=== PATIENT | male | born 1985 | race Hispanic/Latino ===

== ENCOUNTER 2024-10-21 12:57 | Emergency (ER) | payer SELFPAY ==
[~2024-10-21] VITALS: Ht 165.1 cm; Wt 81.6 kg
--- NOTE | 2024-10-21 13:55 | ERN ---
General Chief Complaint: Elbow Problem Stated Complaint: NUMBNESS RIGHT FOREARM Time Seen by MD: 13:07 Time Seen by Midlevel: 13:07 Source: patient History of Present Illness Initial Comments Patient is a 39-year-old male presenting to the emergency department with right elbow pain. Patient reports recurrent episodes of right elbow pain in the past however most recently yesterday he developed pain to his elbow after trying to reach for remote on the floor. Denies any direct injury. Denies any heavy lifting. Denies playing any sports. Patient states he was unable to bend his elbow secondary to pain. Denies any other symptoms at this time. Allergies: Coded Allergies: No Known Allergies (Unverified Allergy, Unknown, 10/21/24) Past Medical History Past Medical History: No Pertinent History Past Surgical History: None ROS Dictation CONSTITUTIONAL: Negative except for HPI HEAD/FACE: Negative except for HPI EENT: Negative except for HPI RESPIRATORY: Negative except for HPI GASTROINTESTINAL/ABDOMINAL: Negative except for HPI GENITOURINARY: Negative except for HPI MUSCULOSKELETAL: Negative except for HPI INTEGUMENTARY: Negative except for HPI NEUROLOGICAL/PSYCH: Negative except for HPI HEMATOLOGIC/LYMPHATIC: Negative except for HPI All Systems Negative, Except as noted above. 13 point review of systems assessed and all negative except for above. Physical Exam Physical Exam Dictation Vital Signs reviewed General Appearance: Alert, oriented x 3, no acute distress, well developed, nourished. Head and Face: non-traumatic. Eyes: PERRL, pink conjunctivas, eyelid no trauma, anterior chamber with arcus senilis. Ears: Pinnas intact and no signs of trauma or erythema ear canals clear and no discharge TM no erythema Nose: No discharge, no bleeding. Oropharynx: Mouth normal, tongue pink, pharynx clear,no erythema, tonsils no exudates, no abscesses noted, mucous membrane moist Neck: Supple, non-tender, no thyromegaly, no masses, no JVD, no bruits Breast:Deferred Chest:No tenderness, no crepitus, no paradoxical movement, no retractions Lungs:Clear, well-ventilated, symmetric, no rales, no wheezing, no rhonchi, no stridor, good breath sounds bilaterally Heart: Regular rate, regular rhythm, no murmur, no gallops Vascular: no peripheral edema, Abdomen: Soft, positive bowel sounds, nondistended, no guarding, nontender, no rebound, no masses no hepatomegaly, no splenomegaly, no Melissa's sign, no hernias. Rectal: Deferred Genital: Deferred Neurological: Normal speech, motor function intact, sensory function intact Musculoskeletal: Neck nontender, full range of motion, back nontender, full range of motion, Extremities: There is mild swelling to the medial epicondyle of the right elbow, range of motion is restricted secondary to pain, sensation is intact, there was good radial pulse to the right arm, there is capillary refill of less than 2 seconds, neurovascularly intact Skin: Color pink, dry, no turgor, no rash, no lacerations, no abrasions, no contusions. Lymphatic: Deferred MDM MDM: Patient is a 39-year-old male presenting to the emergency department with right elbow pain. Patient reports recurrent episodes of right elbow pain in the past however most recently yesterday he developed pain to his elbow after trying to reach for remote on the floor. Denies any direct injury. Denies any heavy lifting. Denies playing any sports. Patient states he was unable to bend his elbow secondary to pain. Denies any other symptoms at this time. On physical examination there is mild swelling to the medial epicondyle of the right elbow, range of motion is restricted secondary to pain, sensation is intact, there was good radial pulse to the right arm, there is capillary refill of less than 2 seconds, neurovascularly intact. X-ray of the right elbow shows erosive changes consistent with a previous healed fracture however according to the radiologist an acute fracture can not be completely ruled out at this time. Patient denies any direct injury to the area recently so an acute fractures less likely. The patient was placed on a sling and we will be advised to follow up with orthopedic surgeon outpatient. Patient agrees with this plan and all questions have been answered. Patient was sent home with a prescription for Toradol for outpatient management. Differential diagnosis: Strain, sprain, fracture, There are no social concerns with this patient. Prescription drug management Prescriptions will include: Toradol Medical management and examination interpretation discussions were had by me with other qualified healthcare professionals as indicated for the patient's care. ED Course Orders Procedure Category Date Status Time Elbow 2vws Rt RAD 10/21/24 Resulted 13:08 Hydrocodone/Apap PHA 10/21/24 Complete Tab ([place] 10) 13:30 Sling ROSEMARY 10/21/24 In Process 13:08 Current Medications Medications (Trade) Dose Ordered Sig/Doyle Route PRN Reason Start Time Stop Time Status Last Admin Dose Admin Acetaminophen/ Hydrocodone Bitart ([place] 10) 1 tab ONCE ONCE PO 10/21/24 13:30 10/21/24 13:31 DC 10/21/24 13:59 Vital Signs Date Time Temp Pulse Resp B/P (MAP) Pulse Ox O2 Delivery O2 Flow Rate FiO2 10/21/24 14:12 97.9 80 16 137/85 97 Room Air* 0 21 10/21/24 13:00 97.5 82 16 144/92 97 Room Air 0 [facility] [address] [id number] IMAGING REPORT Signed PATIENT: JEFFREY WALKER MR#: [id number] : 1985 SEX: M AGE: 39 LOCATION: [facility] ORDER 1309 STATUS: REG ER REPORT#: [id number] SERVICE 1308 REASON: Right elbow pain ORDERING PHYSICIAN: COLEMAN EDWARDS PROCEDURE: [id number] - ELBOW 2VWS RT ELBOW 2VWS RT HISTORY: Right elbow pain COMPARISON: None TECHNIQUE: 3 images of right elbow were obtained. FINDINGS: Erosive changes are noted of the right elbow with new bone formation. There are anterior and posterior fat pad displacement. Nondisplaced fracture cannot be completely excluded. There is no other acute displaced fracture or dislocation. Degenerative changes are seen. IMPRESSION: 1. Findings as described above. DICTATED BY: RICHIE COVARRUBIAS MD DATE: 10/21/241427 ELECTRONICALLY SIGNED BY: RICHIE COVARRUBIAS MD DATE: 10/21/24 1437 DX & DISP Disposition: Discharge Departure Impression: Primary Impression: Right elbow pain Condition: Stable Additional Instructions: Your right elbow x-ray is consistent with what appears to be an old fracture that has healed. This is most likely what is causing your pain and restricted range of motion. You will need to follow up with an orthopedic surgeon outpatient for further evaluation. You can also follow up with your primary care doctor in 2-3 days for repeat evaluation. Continue to use your sling for supportive management. I have given you a prescription for Toradol which should help with your pain for the next couple of days. Return to the ER if you develop any new or worsening symptoms. Referrals: SELF,REFERRAL (PCP) JD AVILES MD, VISHWAS B MD Time of Disposition: 14:46 I have reviewed the case, and I agree with, Diagnosis and Plan I performed the substantive portion of the visit. I have reviewed and personally made and approve the management plan that is documented in the note by myself or the ANNELISE. I acknowledge for responsibility for the patient's management plan. COLEMAN EDWARDS Oct 21, 2024 13:55
[2024-10-21] MEDS: HYDROcodone/acetaMINOPHEN 10/325 MG TAB PO ONE (13:59)
[2024-10-21 14:12] VITALS: BP 137/85; PULSE 80; RESP 16; TEMP 97.9; O2SAT 97
--- NOTE | 2024-10-21 14:34 | HMCIMG ---
ELBOW 2VWS RT HISTORY: Right elbow pain COMPARISON: None TECHNIQUE: 3 images of right elbow were obtained. FINDINGS: Erosive changes are noted of the right elbow with new bone formation. There are anterior and posterior fat pad displacement. Nondisplaced fracture cannot be completely excluded. There is no other acute displaced fracture or dislocation. Degenerative changes are seen. IMPRESSION: 1. Findings as described above.
== END 2024-10-21 14:55 | disposition home or self-care (01) ==
LOC: EDH 12:57
DX: M25.521 Pain in right elbow (principal)
CPT/HCPCS: 29105; 73070; 99283